=== PATIENT | female | born 1975 | race Two or more races ===

== ENCOUNTER → 2020-02-25 | Outpatient (CLI) | payer OTHER ==
[~2020-02-25] MED LIST: ASCO500T8 PO; None per pt.; OMEP-110 PO; TEMA7.5C PO; ZOLP10TA
== END | disposition home or self-care (01) ==
LOC: STAR 15:00
PROVIDERS: ATTEND Orthopaedic Surgery
DX: Z20.828 Contact with and (suspected) exposure to other viral communicable diseases (principal); M75.51 Bursitis of right shoulder; M75.21 Bicipital tendinitis, right shoulder; M19.011 Primary osteoarthritis, right shoulder
CPT/HCPCS: 87635

== ENCOUNTER 2020-03-02 09:57 | Day surgery (SDC) | payer OTHER ==
[~2020-03-02] VITALS: Ht 152.4 cm; Wt 79.7 kg
[2020-03-02 10:36] VITALS: BP 117/78
[2020-03-02 10:41] LABS: HCG UR SG 1.004 (1.003-1.030)
[2020-03-02] MEDS ORDERED: LACTATED RINGERS 1,000 ML IV SCH (11:00)
[2020-03-02] MEDS ORDERED: CHLORHEXIDINE 15 ML UDC MM ONE (11:00)
[2020-03-02] MEDS ORDERED: CLINDAMYCIN 150 MG/ML, 6ML ONE (11:21)
[2020-03-02] MEDS ORDERED: BUPIVACAINE/PF 0.25% ONE (11:21)
[2020-03-02] MEDS ORDERED: EPINEPHRINE TOPICAL SOLN 1 MG/ML, 30ML ONE (11:21)
[2020-03-02] MEDS ORDERED: EPINEPHRINE 1 MG/ML, 1ML ONE (11:21)
[2020-03-02] MEDS ORDERED: MIDAZOLAM 1 MG/ML, 2ML ONE (11:24)
[2020-03-02] MEDS ORDERED: FENTANYL PF 250 MCG/5ML ONE (11:25)
[2020-03-02] MEDS ORDERED: PROPOFOL 10 MG/ML, 20ML ONE (11:28)
[2020-03-02] MEDS ORDERED: CEFAZOLIN 1,000 MG ONE (11:28)
[2020-03-02] MEDS ORDERED: GLYCOPYRROLATE 0.2MG/1ML, 5ML ONE (11:28)
[2020-03-02] MEDS ORDERED: ONDANSETRON 2MG/ML, 2ML ONE (11:28)
[2020-03-02] MEDS ORDERED: NEOSTIGMINE 1 MG/ML, 10ML ONE (11:28)
[2020-03-02] MEDS ORDERED: ROCURONIUM 10MG/ML,5ML ONE (11:28)
[2020-03-02] MEDS ORDERED: SCOPOLAMINE 1MG PATCH TD ONE (11:39)
[2020-03-02] MEDS ORDERED: FENTANYL PF 100 MCG/2ML IV PRN (12:00)
[2020-03-02] MEDS ORDERED: morphine SULFATE 10 MG/ML, 1ML IVPush PRN (12:00)
[2020-03-02] MEDS ORDERED: hydrALAzine 20 MG/ML, 1ML IV PRN (12:00)
[2020-03-02] MEDS ORDERED: OXYcodone 5 MG/5 ML ORAL.SOL UDC PO PRN (12:00)
[2020-03-02] MEDS ORDERED: MEPERIDINE/PF 25MG/0.5ML IVPush PRN (12:00)
[2020-03-02] MEDS ORDERED: HALOPERIDOL 5 MG/ML IV PRN (12:00)
[2020-03-02] MEDS ORDERED: ACETAMINOPHEN 325 MG TABLET PO PRN (12:00)
[2020-03-02] MEDS ORDERED: LABETALOL 5MG/ML, 20ML IV PRN (12:00)
[2020-03-02] MEDS ORDERED: PROMETHAZINE 25 MG/ML, 1ML IVPush PRN (12:00)
[2020-03-02] MEDS ORDERED: LORazepam 2 MG/ML, 1ML ONE (13:35)
[2020-03-02] MEDS ORDERED: ACETAMINOPHEN 650 MG/20.3 ML UDC ONE (13:51)
[2020-03-02] MEDS ORDERED: OXYcodone 5 MG/5 ML ORAL.SOL UDC ONE (13:51)
[2020-03-02] MEDS ORDERED: HYDROmorphone 1 MG/ML, 1ML INJ ONE (13:51)
[2020-03-02] MEDS: HYDROmorphone 1 MG/ML, 1ML INJ IVPush PRN ×2 (13:56→14:11)
[2020-03-02] MEDS ORDERED: LORazepam 2 MG/ML, 1ML IVPush PRN (14:30)
== END 2020-03-02 16:05 | disposition home or self-care (01) ==
LOC: OUT 09:57
PROVIDERS: ATTEND Orthopaedic Surgery
DX: S43.431A Superior glenoid labrum lesion of right shoulder, initial encounter (principal); M19.011 Primary osteoarthritis, right shoulder; M25.711 Osteophyte, right shoulder; M25.811 Other specified joint disorders, right shoulder; G89.18 Other acute postprocedural pain; K21.9 Gastro-esophageal reflux disease without esophagitis; Z79.899 Other long term (current) drug therapy; Z88.8 Allergy status to other drugs, medicaments and biological substances; Z82.61 Family history of arthritis; X58.XXXA Exposure to other specified factors, initial encounter; Y93.9 Activity, unspecified; Y92.89 Other specified places as the place of occurrence of the external cause; Y99.8 Other external cause status
CPT/HCPCS: 29824; 29826; 64415; 81025; J0171; J0690; J1170; J2060; J2250; J2405; J2704; J2710; J3010; J7120